=== PATIENT | female | born 1935 | race Caucasian/White ===

== ENCOUNTER 2017-12-06 17:05 | Inpatient (IN) | payer MEDICARE ==
[~2017-12-06] VITALS: Ht 154.9 cm; Wt 82.3 kg
[2017-12-06 20:00] VITALS: BP 149/54
[2017-12-06 20:20] VITALS: BP 149/54
[2017-12-06] MEDS ORDERED: CLONAZEPAM 0.5 MG TAB PO PRN (21:00)
[2017-12-06] MEDS ORDERED: HYDROCODONE/APAP 7.5MG-325MG 1 EA TAB PO PRN ×2 (21:00→21:15)
[2017-12-06] MEDS ORDERED: HYDROMORPHONE 1MG/1ML INJ IV PRN ×2 (21:00→21:15)
[2017-12-06] MEDS ORDERED: ONDANSETRON HCL INJ 2 MG/ML VIAL IV PRN (21:00)
[2017-12-06] MEDS ORDERED: JANUMET 50-5001 EACH (21:22)
[2017-12-06] MEDS ORDERED: HYDROCHLOROTHIA25 MG (21:22)
[2017-12-06] MEDS ORDERED: DEXILANT60 MG (21:22)
[2017-12-06] MEDS ORDERED: DIOVAN80 MG PO (21:22)
[2017-12-06] MEDS ORDERED: PROCARDIA XL30 MG (21:22)
[2017-12-06] MEDS ORDERED: LIPITOR20 MG (21:22)
[2017-12-06 21:55] LABS: BASOPHILS # (AUTO) 0.1 (0.0-0.1); BASOPHILS % 1.2 % (0.0-1.0); EOSINOPHILS # (AUTO) 0.1 (0.0-0.4); EOSINOPHILS % 0.7 % (0.0-6.0); HEMATOCRIT 39.6 % (34.2-44.1); HEMOGLOBIN 12.7 g/dL (12.0-16.0); LYMPHOCYTES # (AUTO) 0.9 (1.0-3.2); LYMPHOCYTES % 8.7 % (18.0-39.1); MEAN CORPUSCULAR HEMOGLOBIN 31.1 pg (28-32); MEAN CORPUSCULAR HGB CONC 32.1 g/dL (31-35); MEAN CORPUSCULAR VOLUME 97.1 fL (81-99); MONOCYTES # (AUTO) 0.7 (0.2-0.8); MONOCYTES % 6.8 % (4.4-11.3); NEUTROPHILS # (AUTO) 8.1 (2.1-6.9); NEUTROPHILS % 80.5 % (38.7-80.0); PLATELET COUNT 406 x10e3/uL (140-360); RED BLOOD COUNT 4.08 x10e6/uL (3.6-5.1); RED CELL DISTRIBUTION WIDTH 12.3 % (11.7-14.4)
[2017-12-06 22:10] LABS: MAGNESIUM 1.5 MG/DL (1.3-2.1); PHOSPHORUS 3.7 MG/DL (2.3-4.7)
[2017-12-06 22:17] LABS: ALBUMIN 2.9 g/dL (3.5-5.0); ALBUMIN/GLOBULIN RATIO 0.7 (0.8-2.0); ANION GAP 16.2 mmol/L (8-16); CALCIUM 9.5 mg/dL (8.4-10.2); CREATININE, SERUM 1.31 mg/dL (0.57-1.11); POTASSIUM 3.2 mmol/L (3.5-5.1)
[2017-12-06] MEDS: FAMOTIDINE 20 MG TAB PO SCH (22:53)
[2017-12-06] MEDS: ENOXAPARIN SOD INJ 40 MG/0.4 ML SYR SC SCH (22:53)
[2017-12-06] MEDS: SODIUM CHLORIDE 0.9% 1000ML 1,000 ML IV SCH (22:53)
[2017-12-06] MEDS: ATORVASTATIN 40 MG TAB PO SCH (22:54)
[2017-12-06] MEDS: NIFEDIPINE CR 30 MG TAB PO SCH (22:55)
[2017-12-07] VITALS (7 sets, daily range): BP systolic 138–163; BP diastolic 62–75
[2017-12-07] MEDS: ACETAMINOPHEN 325 MG TAB PO PRN (02:25)
[2017-12-07] MEDS ORDERED: LACTULOSE SYRUP 20 GM/30 ML UDC PO PRN (04:15)
[2017-12-07] MEDS ORDERED: DEXTROSE 50% SYRINGE 50 ML IV PRN (04:15)
[2017-12-07] MEDS ORDERED: MAGNESIUM SULFATE 2GM/50ML 50 ML IV ONE (05:30)
[2017-12-07 06:37] LABS: BASOPHILS # (AUTO) 0.1 (0.0-0.1); EOSINOPHILS # (AUTO) 0.3 (0.0-0.4); EOSINOPHILS % 2.5 % (0.0-6.0); HEMATOCRIT 33.1 % (34.2-44.1); LYMPHOCYTES # (AUTO) 1.1 (1.0-3.2); LYMPHOCYTES % 11.1 % (18.0-39.1); MEAN CORPUSCULAR HEMOGLOBIN 30.4 pg (28-32); MEAN CORPUSCULAR HGB CONC 33.2 g/dL (31-35); MEAN CORPUSCULAR VOLUME 91.4 fL (81-99); MONOCYTES % 9.4 % (4.4-11.3); NEUTROPHILS # (AUTO) 7.3 (2.1-6.9); NEUTROPHILS % 72.6 % (38.7-80.0); PLATELET COUNT 429 x10e3/uL (140-360); RED BLOOD COUNT 3.62 x10e6/uL (3.6-5.1); RED CELL DISTRIBUTION WIDTH 12.3 % (11.7-14.4)
--- NOTE | 2017-12-07 06:41 | Diagnostic Imaging Report ---
EXAM: CHEST SINGLE (PORTABLE), AP 1 view INDICATION: CHF COMPARISON: None FINDINGS: LINES/TUBES: None LUNGS: No consolidations or edema. PLEURA: No effusions or pneumothorax. HEART AND MEDIASTINUM: Normal size and contour. BONES AND SOFT TISSUES: No acute findings. Rounded opacity at the lower mediastinum is likely a hiatal hernia. IMPRESSION: Mild vascular congestion. No pulmonary edema. Rounded opacity of the lower mediastinum is likely a hiatal hernia. Signed by: Dr. Hortencia Turpin M.D. on 12/07/2017 6:38 AM
[2017-12-07 07:09] LABS: ANION GAP 13.4 mmol/L (8-16); CALCIUM 9.4 mg/dL (8.4-10.2); CREATININE, SERUM 1.34 mg/dL (0.57-1.11); MAGNESIUM 1.6 MG/DL (1.3-2.1); POTASSIUM 3.4 mmol/L (3.5-5.1)
[2017-12-07] MEDS: INSULIN REGULAR, HUMAN 100 UNIT/1 ML 3ML VIAL SQ SCH ×4 (07:30→20:35)
[2017-12-07] MEDS ORDERED: DIATRIZOATE MEGL/DIATRIZOA SOD 30 ML BTL PO ONE (07:30)
[2017-12-07 07:34] LABS: THYROID STIMULATING HORMONE 3.477 uIU/mL (0.350-4.940)
[2017-12-07] MEDS ORDERED: SODIUM CHLORIDE 0.9% 1000ML 1,000 ML IV SCH (08:00)
[2017-12-07 08:09] LABS: EOSINOPHILS % (MANUAL) 4 % (0-7); LYMPHOCYTES % (MANUAL) 6 % (19-48); MONOCYTES % (MANUAL) 9 % (3.4-9.0); NEUTROPHILS % (MANUAL) 78 % (40-74)
[2017-12-07 08:10] LABS: ANISOCYTOSIS SLIGHT; PLATELET ESTIMATE ADEQUATE; PLATELET MORPHOLOGY COMMENT NORMAL; POIKILOCYTOSIS SLIGHT; RBC MORPHOLOGY COMMENT NORMAL
[2017-12-07] MEDS ORDERED: SODIUM CHLORIDE 0.9% 250ML 250 ML IV ONE (08:15)
[2017-12-07] MEDS ORDERED: POTASSIUM CHLORIDE 20 MEQ TAB CR PO SCH (10:00)
[2017-12-07] MEDS ORDERED: SODIUM CHLORIDE 0.9% 50ML 0 ML ONE (10:43)
[2017-12-07] MEDS ORDERED: IOPAMIDOL 370 MG/ML 200 ML INFUS..BTL INJ ONE (10:43)
--- NOTE | 2017-12-07 10:52 | Diagnostic Imaging Report ---
PROCEDURE:HIP RIGHT 2-3 VW (+/- PELVIS) TECHNIQUE:AP pelvis; AP and frog leg lateral views right hip INDICATION:Right hip pain COMPARISON:None. FINDINGS: Severe degenerative change of the right hip with total loss of joint space, sclerosis, erosion, remodeling and osteophytosis. Regional skeleton intact. CONCLUSION: Severe degenerative changes of the right hip. Dictated by: Darius Jimenez M.D. on 12/07/2017 at 10:53 Electronically approved by: Darius Jimenez M.D. on 12/07/2017 at 10:53
--- NOTE | 2017-12-07 10:54 | Diagnostic Imaging Report ---
PROCEDURE:KNEE THREE VIEWS BILATERAL TECHNIQUE:AP, lateral and bilateral oblique views knees. INDICATION:Knee pain COMPARISON:None. FINDINGS: Bilateral 3 compartment joint space narrowing most severe in the medial compartments bilaterally. Bilateral chondrocalcinosis. No effusions. Intact soft tissues. 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 Dictated by: Darius Jimenez M.D. on 12/07/2017 at 10:55 Electronically approved by: Darius Jimenez M.D. on 12/07/2017 at 10:55
--- NOTE | 2017-12-07 11:05 | Diagnostic Imaging Report ---
PROCEDURE: CT ABDOMEN AND PELVIS WITHOUT CONTRAST COMPARISON:None. INDICATIONS:Right lower quadrant pain TECHNIQUE: Routine protocol Volumetric CT abdomen after ministration of 450 mL dilute positive enteric contrast. No intravenous contrast. Multiplanar reformatted images. DLP: 689.24 FINDINGS: Trace pleural effusions (left greater than right). Bilateral interstitial scar. Normal heart size. Liver: Normal Gallbladder: Cholecystectomy. No bile duct dilation. Pancreas: Normal Spleen: Normal Adrenal glands: Normal Kidneys: Atrophic left kidney. Nonspecific right perinephric fat stranding/inflammation. Mildly prominent extrarenal pelvis without hydronephrosis or ureteral obstruction. Urinary bladder: Normal Uterus and adnexa: Hysterectomy Bowel: Normal caliber. Large sliding-type hiatal hernia. Extensive sigmoid diverticulosis. Inconspicuous appendix. Peritoneum: Normal Vasculature: Normal caliber. Diffuse moderate atherosclerosis. Lymph nodes: Normal Skeleton: Intact. Multilevel degenerative disc disease the thoracolumbar spine with advanced facet arthropathy. Suspected multilevel neural foramen stenosis from L3-S1. Soft tissues: Normal CONCLUSION: 1. Nonspecific right perinephric inflammation. Correlate for pyelonephritis. No obstruction. 2. Extensive sigmoid diverticulosis. Dictated by: Darius Jimenez M.D. on 12/07/2017 at 11:06 Electronically approved by: Darius Jimenez M.D. on 12/07/2017 at 11:06
[2017-12-07] MEDS ORDERED: POTASSIUM CHLORIDE 20 MEQ TAB CR PO NR (11:15)
[2017-12-07] MEDS ORDERED: DOCUSATE SODIUM 100 MG CAP PO PRN (11:45)
[2017-12-07] MEDS: METFORMIN HCL 500 MG TAB PO SCH ×2 (12:05→17:56)
[2017-12-07] MEDS: LACTOBACILLUS ACIDOPHILUS CAPSULE PO SCH ×2 (12:06→17:56)
[2017-12-07] MEDS: VALSARTAN 80 MG TAB PO SCH (12:07)
[2017-12-07] MEDS: HYDROCHLOROTHIAZIDE 25 MG TAB PO SCH (12:07)
[2017-12-07] MEDS: FAMOTIDINE 20 MG TAB PO SCH ×2 (12:07→17:56)
[2017-12-07 15:24] LABS: BILIRUBIN,URINE NEGATIVE (NEGATIVE); CLARITY,URINE CLEAR (CLEAR); COLOR,URINE YELLOW (YELLOW); KETONES,URINE NEGATIVE (NEGATIVE); LEUKOCYTE ESTERASE ,URINE NEGATIVE (NEGATIVE); NITRITE,URINE NEGATIVE (NEGATIVE); PROTEIN,URINE DIPSTICK 2+ (NEGATIVE); URINE UROBILINOGEN 0.2 mg/dL (0.2 - 1)
[2017-12-07 15:37] LABS: EPITHELIAL CELLS,URINE FEW /LPF; MUCUS,URINE MODERATE (RARE); RBC,URINE 0-5 /HPF (0-5); WBC,URINE (MAN) 0-5 /HPF (0-5)
[2017-12-07] MEDS: ENOXAPARIN SOD INJ 40 MG/0.4 ML SYR SC SCH (17:56)
[2017-12-07] MEDS: SODIUM CHLORIDE 0.9% 1000ML 1,000 ML IV SCH (17:56)
--- NOTE | 2017-12-07 18:38 | Diagnostic Imaging Report ---
Examination: MRI SPINE LUMBAR WITHOUT CONTRAST History: Left leg pain. Comparison studies: None Technique: Sagittal, coronal and axial T2 , sagittal T1 and STIR; axial spin density oblique. Findings: Number of lumbar vertebral bodies: Five. Alignment: Normal lordosis. No scoliosis. Soft tissues: Atrophic left kidney. Posterior paraspinal soft tissues and muscles: No abnormality. Lower thoracic cord: Normal in signal and morphology. The tip of the conus is at T12. Cauda equina: No masses. No arachnoiditis. Vertebrae: No fractures, infection or neoplasm. Degenerative changes: L1-L2: Diffuse disc bulge. No foraminal or canal stenosis. L2-L3: Diffuse disc bulge and mild bilateral facet arthropathy result in mild bilateral neural foraminal narrowing and mild canal stenosis. L3-L4: Diffuse disc bulge with right central disc protrusion and mild bilateral facet arthropathy result in moderate bilateral neural foraminal narrowing and severe canal stenosis. L4-L5: Diffuse disc bulge and mild bilateral facet arthropathy result in moderate bilateral neural foraminal narrowing. No canal stenosis. L5-S1: Prior decompressive laminectomies. Diffuse disc bulge and mild bilateral facet arthropathy result in severe bilateral neural foraminal narrowing. IMPRESSION: 1. Degenerative changes from L1-L2 through L5-S1 with severe canal stenosis at L3-L4 and mild canal stenosis at L2-L3. 2. Severe bilateral neural foraminal narrowing at L5-S1 and moderate bilateral foraminal narrowing at L3-L4 and L4-L5. 3. Prior decompressive laminectomies at L5-S1. 4. Atrophic left kidney. Signed by: Dr. Nina Hernandez M.D. on 12/07/2017 6:35 PM
[2017-12-07] MEDS: ATORVASTATIN 40 MG TAB PO SCH (20:52)
[2017-12-07] MEDS: NIFEDIPINE CR 30 MG TAB PO SCH (20:52)
[2017-12-07] MEDS ORDERED: ATORVASTATIN 40 MG TAB PO SCH (21:00)
[2017-12-07] MEDS ORDERED: ATORVASTATIN 20 MG TAB PO SCH (21:00)
[2017-12-07] MEDS ORDERED: NIFEDIPINE CR 30 MG TAB PO SCH (21:00)
[2017-12-08 03:25] VITALS: BP 172/73
[2017-12-08 06:34] LABS: BASOPHILS # (AUTO) 0.1 (0.0-0.1); BASOPHILS % 0.9 % (0.0-1.0); EOSINOPHILS # (AUTO) 0.4 (0.0-0.4); EOSINOPHILS % 4.5 % (0.0-6.0); HEMATOCRIT 30.2 % (34.2-44.1); LYMPHOCYTES # (AUTO) 1.3 (1.0-3.2); LYMPHOCYTES % 14.8 % (18.0-39.1); MEAN CORPUSCULAR HEMOGLOBIN 30.7 pg (28-32); MEAN CORPUSCULAR HGB CONC 33.1 g/dL (31-35); MEAN CORPUSCULAR VOLUME 92.6 fL (81-99); MONOCYTES # (AUTO) 0.7 (0.2-0.8); MONOCYTES % 8.4 % (4.4-11.3); NEUTROPHILS # (AUTO) 5.8 (2.1-6.9); NEUTROPHILS % 68.6 % (38.7-80.0); PLATELET COUNT 371 x10e3/uL (140-360); RED BLOOD COUNT 3.26 x10e6/uL (3.6-5.1); RED CELL DISTRIBUTION WIDTH 12.6 % (11.7-14.4)
[2017-12-08 06:51] LABS: ANION GAP 8.3 mmol/L (8-16); CALCIUM 8.6 mg/dL (8.4-10.2); CREATININE, SERUM 1.07 mg/dL (0.57-1.11); MAGNESIUM 1.8 MG/DL (1.3-2.1); POTASSIUM 3.3 mmol/L (3.5-5.1)
[2017-12-08] MEDS: INSULIN REGULAR, HUMAN 100 UNIT/1 ML 3ML VIAL SQ SCH ×4 (07:30→21:00)
[2017-12-08 07:44] VITALS: BP 147/57
[2017-12-08] MEDS: FAMOTIDINE 20 MG TAB PO SCH ×2 (09:18→16:29)
[2017-12-08] MEDS: LACTOBACILLUS ACIDOPHILUS CAPSULE PO SCH ×2 (09:19→16:29)
[2017-12-08] MEDS: METFORMIN HCL 500 MG TAB PO SCH ×2 (09:19→16:29)
[2017-12-08] MEDS: HYDROCHLOROTHIAZIDE 25 MG TAB PO SCH (09:19)
[2017-12-08] MEDS: VALSARTAN 80 MG TAB PO SCH (09:19)
[2017-12-08] MEDS ORDERED: HYDRALAZINE HCL 20 MG/ML VIAL IV PRN (10:30)
[2017-12-08] MEDS ORDERED: POTASSIUM CHLORIDE 20 MEQ TAB CR PO NR ×2 (10:45→11:00)
[2017-12-08 11:25] VITALS: BP 159/65
[2017-12-08 11:29] VITALS: BP 159/65
[2017-12-08] MEDS: SODIUM CHLORIDE 0.9% 1000ML 1,000 ML IV SCH (13:00)
[2017-12-08 15:42] VITALS: BP 176/68
[2017-12-08] MEDS: ENOXAPARIN SOD INJ 40 MG/0.4 ML SYR SC SCH (16:30)
[2017-12-08] MEDS ORDERED: POTASSIUM CHLORIDE 20 MEQ TAB CR PO ONE (17:00)
[2017-12-08 20:00] VITALS: BP 158/74
[2017-12-08] MEDS: ATORVASTATIN 40 MG TAB PO SCH (20:52)
[2017-12-08] MEDS: NIFEDIPINE CR 30 MG TAB PO SCH (20:53)
[2017-12-09] VITALS: BP_SYST 109; BP_SYST 167; BP_DIAS 67; BP_DIAS 84
[2017-12-09] MEDS: ACETAMINOPHEN 325 MG TAB PO PRN ×2 (01:25→06:45)
[2017-12-09 04:00] VITALS: BP 152/69
[2017-12-09 06:41] LABS: BASOPHILS # (AUTO) 0.1 (0.0-0.1); BASOPHILS % 0.9 % (0.0-1.0); EOSINOPHILS # (AUTO) 0.4 (0.0-0.4); EOSINOPHILS % 4.5 % (0.0-6.0); HEMATOCRIT 31.7 % (34.2-44.1); HEMOGLOBIN 10.3 g/dL (12.0-16.0); LYMPHOCYTES % 12.3 % (18.0-39.1); MEAN CORPUSCULAR HEMOGLOBIN 30.9 pg (28-32); MEAN CORPUSCULAR HGB CONC 32.5 g/dL (31-35); MEAN CORPUSCULAR VOLUME 95.2 fL (81-99); MONOCYTES # (AUTO) 0.7 (0.2-0.8); MONOCYTES % 9.2 % (4.4-11.3); NEUTROPHILS # (AUTO) 5.6 (2.1-6.9); PLATELET COUNT 384 x10e3/uL (140-360); RED BLOOD COUNT 3.33 x10e6/uL (3.6-5.1); RED CELL DISTRIBUTION WIDTH 12.7 % (11.7-14.4)
[2017-12-09 06:57] LABS: ANION GAP 9.8 mmol/L (8-16); CALCIUM 9.1 mg/dL (8.4-10.2); CREATININE, SERUM 0.94 mg/dL (0.57-1.11); POTASSIUM 3.8 mmol/L (3.5-5.1)
[2017-12-09] MEDS: INSULIN REGULAR, HUMAN 100 UNIT/1 ML 3ML VIAL SQ SCH (07:30)
[2017-12-09 08:46] VITALS: BP 160/68
[2017-12-09] MEDS ORDERED: ACETAMINOPHEN325 M1 PO (08:53)
[2017-12-09] MEDS ORDERED: LACTULOSE20 GM/30 M PO (08:53)
[2017-12-09] MEDS ORDERED: COLACE100 M1 PO (08:53)
[2017-12-09] MEDS ORDERED: NIFEDIPINE ER30 M1 PO (08:53)
[2017-12-09] MEDS ORDERED: TYLENOL # 31 EA PO (08:53)
[2017-12-09] MEDS ORDERED: ZOFRAN ODT4 MG PO (09:06)
[2017-12-09] MEDS: SODIUM CHLORIDE 0.9% 1000ML 1,000 ML IV SCH (09:11)
[2017-12-09] MEDS: VALSARTAN 80 MG TAB PO SCH (09:20)
[2017-12-09] MEDS: LACTOBACILLUS ACIDOPHILUS CAPSULE PO SCH (09:20)
[2017-12-09] MEDS: METFORMIN HCL 500 MG TAB PO SCH (09:20)
[2017-12-09] MEDS: FAMOTIDINE 20 MG TAB PO SCH (09:20)
[2017-12-09] MEDS: HYDROCHLOROTHIAZIDE 25 MG TAB PO SCH (09:21)
[2017-12-09 10:14] VITALS: BP 160/68
[2017-12-09 11:29] LABS: EOSINOPHILS % (MANUAL) 1 % (0-7); HYPOCHROMASIA SLIGHT; LYMPHOCYTES % (MANUAL) 13 % (19-48); MONOCYTES % (MANUAL) 4 % (3.4-9.0); NEUTROPHILS % (MANUAL) 78 % (40-74)
[2017-12-09 11:30] LABS: ANISOCYTOSIS MODERATE; POIKILOCYTOSIS SLIGHT
[2017-12-09 11:31] LABS: PLATELET ESTIMATE ADEQUATE; PLATELET MORPHOLOGY COMMENT FEW LARGE; RBC MORPHOLOGY COMMENT NORMAL
--- NOTE | 2017-12-09 13:08 | Discharge Summary ---
ADMISSION DIAGNOSES 1. Bilateral lower extremity pain/ambulatory dysfunction. 2. Hypertension. 3. Type 2 diabetes. 4. Hyperlipidemia. 5. Anxiety. 6. Hypokalemia. 7. Acute kidney injury versus chronic kidney disease. 8. Constipation. DISCHARGE DIAGNOSES 1. Bilateral lower extremity pain/ambulatory dysfunction. 2. Hypertension. 3. Type 2 diabetes. 4. Hyperlipidemia. 5. Anxiety. 6. Hypokalemia. 7. Acute kidney injury versus chronic kidney disease. 8. Constipation. HISTORY: Patient has a history of hypertension, type 2 diabetes, diverticulosis, hyperlipidemia, anxiety. Surgical history of bilateral carpal tunnel, back surgery, hysterectomy, appendectomy, cholecystectomy. HOSPITAL COURSE: An 82-year-old female complains of bilateral lower extremity pain, worse on the right, sharp and intermittent, that began a few weeks ago. She says she felt like her knees were giving out, and she says she lost consciousness although she vividly remembers what happened. She went to [facility] and says that her workup was negative. From [facility] she went to a nursing home facility, but she did not like it there; so, she left [place]. She says this whole thing started after taking 1 pill for high cholesterol. After being home for the last few weeks, she said that she had a caregiver there but she was not happy with her; so, she came to the hospital to try to figure out what the leg pain was from. On admission she had a chest x-ray that showed mild vascular congestion, no pulmonary edema, rounded opacity of the lower mediastinum, most likely a hiatal hernia. Bilateral x-rays of knees showed moderate OA bilaterally. Hip x-ray showed severe degenerative change of the right hip. CT of the abdomen showed nonspecific right perinephric inflammation, severe sigmoid diverticulosis. A urine culture was done, which was negative. MRI of L-spine showed degenerative changes from L1-L2 through L5-S1 with severe canal stenosis at L3-L4 and mild canal stenosis at L2-L3, severe bilateral neural foraminal narrowing at L5-S1 and moderate bilateral foraminal narrowing at L3-L4 and L4-L5, prior decompressive laminectomies at L5-S1, and atrophic left kidney. Patient initially said that she cannot take any medication. She does not want muscle relaxers, no steroids, no anti-inflammatories, no pain medication. She said all she wants is Tylenol. She was initially refusing nursing home placement and inpatient rehab placement. She also initially refused physical therapy. They had to go back multiple times to get her to participate with therapy. She also adamantly refused insulin because she says it has killed some of her family members; so, she would only take her metformin for her diabetes. Once all the scans came back negative, she was explained that she could not stay in the hospital for physical therapy, she needed placement either at a facility or she could go home with therapy. After talking to Dr. Key, she decided to go to [facility]. She will go there as she said that she does not want any surgery. She had a previous back surgery and said that that physician said that if she had any more surgery she may not make it. So, she wanted to just continue with physical therapy and hope that the pain would get better. She was discharged to a nursing home facility with Tylenol and Tylenol No. 3 as well as the other inpatient medication she was taking. Vital signs were stable. Patient remained afebrile. Day of discharge, sodium was 138, potassium 3.8, creatinine of 0.94, GFR of 57, hemoglobin of 10.3, hematocrit of 31.7, WBC of 8.085. Patient will discharge and follow up with primary care as needed. Dictated by: Aure Ken NP YAMEL KEY MD Job#: [id number]
== END 2017-12-09 11:07 | DRG 554 ==
LOC: IMCU 19:44 → OBSVTOIN 12-07 10:43
PROVIDERS: ADMIT Internal Medicine; ATTEND Internal Medicine
DX: M17.0 Bilateral primary osteoarthritis of knee (principal); N17.9 Acute kidney failure, unspecified; E87.6 Hypokalemia; F41.9 Anxiety disorder, unspecified; K59.00 Constipation, unspecified; E11.22 Type 2 diabetes mellitus with diabetic chronic kidney disease; N18.9 Chronic kidney disease, unspecified; M48.07 Spinal stenosis, lumbosacral region; K44.9 Diaphragmatic hernia without obstruction or gangrene; R26.89 Other abnormalities of gait and mobility
CPT/HCPCS: 36415; 71045; 72148; 74176; 80048; 80053; 81001; 82948; 83036; 83735; 83880; 84100; 84443; 85025; 85651; 86140; 87086; G0378; J0360; J1170; J1650; J2405; J7030; Q9967

== ENCOUNTER 2018-01-14 19:35 | Emergency (ER) | payer MEDICARE ==
[~2018-01-14] VITALS: Ht 154.9 cm; Wt 82.1 kg
[~2018-01-14 19:35] MED LIST: ACETAMINOPHEN325 M1 PO; COLACE100 M1 PO; DEXILANT60 MG; DIOVAN80 MG PO; HYDROCHLOROTHIA25 MG; JANUMET 50-5001 EACH; LACTULOSE20 GM/30 M PO; LIPITOR20 MG; NIFEDIPINE ER30 M1 PO; PROCARDIA XL30 MG; TYLENOL # 31 EA PO; ZOFRAN ODT4 MG PO
[2018-01-14 19:50] LABS: BASOPHILS # (AUTO) 0.1 (0.0-0.1); BASOPHILS % 1.1 % (0.0-1.0); EOSINOPHILS # (AUTO) 0.1 (0.0-0.4); EOSINOPHILS % 1.7 % (0.0-6.0); HEMATOCRIT 29.1 % (34.2-44.1); HEMOGLOBIN 9.4 g/dL (12.0-16.0); LYMPHOCYTES # (AUTO) 1.1 (1.0-3.2); LYMPHOCYTES % 16.4 % (18.0-39.1); MEAN CORPUSCULAR HEMOGLOBIN 30.5 pg (28-32); MEAN CORPUSCULAR HGB CONC 32.3 g/dL (31-35); MEAN CORPUSCULAR VOLUME 94.5 fL (81-99); MONOCYTES # (AUTO) 0.6 (0.2-0.8); MONOCYTES % 8.9 % (4.4-11.3); NEUTROPHILS # (AUTO) 4.8 (2.1-6.9); NEUTROPHILS % 71.1 % (38.7-80.0); PLATELET COUNT 271 x10e3/uL (140-360); RED BLOOD COUNT 3.08 x10e6/uL (3.6-5.1); RED CELL DISTRIBUTION WIDTH 13.5 % (11.7-14.4)
[2018-01-14 19:51] LABS: BILIRUBIN,URINE 2+ (NEGATIVE); CLARITY,URINE CLEAR (CLEAR); COLOR,URINE YELLOW (YELLOW); KETONES,URINE 1+ (NEGATIVE); LEUKOCYTE ESTERASE ,URINE NEGATIVE (NEGATIVE); NITRITE,URINE NEGATIVE (NEGATIVE); PROTEIN,URINE DIPSTICK 2+ (NEGATIVE); URINE UROBILINOGEN 1 mg/dL (0.2 - 1)
[2018-01-14] MEDS ORDERED: HYDROCHLOROTHIA25 MG PO (19:57)
[2018-01-14] MEDS ORDERED: METFORMIN HCL500 MG PO (19:57)
[2018-01-14] MEDS ORDERED: TIZANIDINE HCL4 MG PO (19:57)
[2018-01-14] MEDS ORDERED: PEPCID40 MG PO (19:57)
[2018-01-14] MEDS ORDERED: LORAZEPAM1 MG PO (19:57)
[2018-01-14] MEDS ORDERED: ZOFRAN ODT4 MG PO (20:00)
[2018-01-14] MEDS ORDERED: CLONIDINE HCL0.1 MG PO (20:00)
[2018-01-14] MEDS ORDERED: MECLIZINE HCL12.5 MG PO (20:00)
[2018-01-14] MEDS ORDERED: ACETAMINOPHEN325 M1 PO (20:00)
[2018-01-14] MEDS ORDERED: COLACE100 MG PO (20:00)
[2018-01-14 20:03] LABS: BACTERIA,URINE RARE /HPF; EPITHELIAL CELLS,URINE RARE /LPF; HYALINE CASTS 0-1 (0-1); MUCUS,URINE FEW (RARE); RBC,URINE 0-5 /HPF (0-5)
[2018-01-14 20:10] LABS: ALBUMIN 2.6 g/dL (3.5-5.0); ALBUMIN/GLOBULIN RATIO 0.7 (0.8-2.0); ANION GAP 15.8 mmol/L (8-16); CALCIUM 9.7 mg/dL (8.4-10.2); CREATININE, SERUM 1.02 mg/dL (0.57-1.11); POTASSIUM 3.8 mmol/L (3.5-5.1)
--- NOTE | 2018-01-14 20:14 | Diagnostic Imaging Report ---
EXAMINATION: CHEST SINGLE (PORTABLE) 01/14/2018 7:39 PM COMPARISON: 12/07/2017 INDICATION: Altered mental status DISCUSSION: LINES: None. LUNGS: Bibasilar atelectasis. No pneumonia or pulmonary edema. PLEURA: No pleural effusion or pneumothorax. HEART AND MEDIASTINUM: The cardiomediastinal silhouette is unremarkable. Hiatal hernia, unchanged. BONES AND SOFT TISSUES: No acute osseous lesion. The soft tissues are normal. IMPRESSION: No acute cardiopulmonary disease. Kei Sullivan MD Signed by: Dr. Kei Sullivan M.D. on 01/14/2018 8:11 PM
--- NOTE | 2018-01-14 20:33 | Diagnostic Imaging Report ---
History:Altered mental status Comparison studies: None Technique: Axial images were obtained from the skull base to the vertex. Coronal and sagittal images reconstructed from the axial data. Intravenous contrast: None Findings: Scalp/skull: No abnormalities. Extra-axial spaces: No masses. No fluid collections. Brain sulci: Moderately prominent. Ventricles: Moderate compensatory dilatation. No hydrocephalus. Parenchyma: Ill-defined hypodensities in the supratentorial white matter are small vessel ischemic changes. No masses, hemorrhage, acute or chronic cortical vascular insults. Sellar/suprasellar region: No abnormalities. Craniocervical junction: Patent foramen magnum. No Chiari one malformation. Incidental findings: Incidental atherosclerotic calcifications in the carotid siphons. Impression: No acute abnormalities. Chronic findings: 1. Moderate generalized volume loss. 2. Moderate supratentorial white matter small vessel ischemic changes. Signed by: Dr. Alexey Miramontes M.D. on 01/14/2018 8:29 PM
== END 2018-01-14 21:39 ==
LOC: ER 19:35
DX: R41.82 Altered mental status, unspecified (principal); R41.0 Disorientation, unspecified; N30.90 Cystitis, unspecified without hematuria; I10 Essential (primary) hypertension; E11.9 Type 2 diabetes mellitus without complications
CPT/HCPCS: 36415; 51700; 70450; 71045; 80053; 81001; 85025; 87086; 93005; 99284